=== PATIENT | male | born 1940 | race Caucasian/White ===

== ENCOUNTER → 2018-02-27 07:59 | Outpatient (CLI) | payer MEDICARE, SELFPAY ==
[2018-02-27 08:50] LABS: Add Manual Diff / Slide Review NO; Basophils Percent Auto 0.8 % (0-2); Eosinophils Percent Auto 3.5 % (2-4); Hematocrit 46.4 % (41-53); Hemoglobin 15.8 g/dL (13.5-17.5); Lymphocytes Percent Auto 21.8 % (25-40); Mean Corpuscular Hemoglobin 30.1 PG (26-34); Mean Corpuscular Volume 88.6 fL (80-100); Monocytes Percent Auto 8.7 % (3-14); Neutrophils Absolute Auto 4700 /uL (3000-5900); Neutrophils Percent Auto 65.2 % (50-75); Platelet Count 177 X10^3/uL (150-400); Red Blood Cell Count 5.24 X10^6/uL (4.5-5.9); Red Cell Distribution Width 13.4 % (11.6-14.8); White Blood Cell Count 7.2 X10^3/uL (4.5-11.0)
[2018-02-27 09:58] LABS: Alanine Aminotransferase 28 IU/L (21-72); Albumin 4.1 g/dL (3.5-5.0); Albumin Globulin Ratio 1.5 (1.0-2.8); Alkaline Phosphatase 72 U/L (38-126); Aspartate Aminotransferase 24 IU/L (17-59); Bilirubin Total 0.4 mg/dL (0.2-1.3); Blood Urea Nitrogen 24 mg/dL (9-20); Calcium 9.1 mg/dL (8.4-10.2); Carbon Dioxide 33 mmol/L (22-32); Chloride 103 mmol/L (98-107); Cholesterol 192 mg/dL (140-199); Estimated Glomerular Filt Rate 58.4 mL/min (>60); Globulin 2.7 g/dL (1.7-4.1); Glucose 102 mg/dL (80-110); HDL Cholesterol 35 mg/dL (40-60); HEMOLYSIS < 15 (0-50); LDL Cholesterol Calculated 126 mg/dL (<100); Potassium 3.7 mmol/L (3.4-5.1); Sodium 146 mmol/L (137-145); Total Protein 6.8 g/dL (6.3-8.2); Triglycerides 154 mg/dL (35-150)
== END ==
PROVIDERS: Family Provider Family Medicine; PCP Family Medicine; Visit Provider Family Medicine
DX: E78.5 Hyperlipidemia, unspecified (principal); I10 Essential (primary) hypertension
CPT/HCPCS: 36415; 80053; 80061; 84443; 85025

== ENCOUNTER → 2019-03-10 07:54 | Outpatient (CLI) | payer MEDICARE, SELFPAY ==
[2019-03-10 08:23] LABS: Add Manual Diff / Slide Review NO; Basophils Absolute Auto 100 /uL (0-100); Basophils Percent Auto 0.8 % (0-2); Eosinophils Absolute Auto 400 /uL (0-450); Eosinophils Percent Auto 4.4 % (2-4); Hematocrit 47.9 % (41-53); Hemoglobin 15.9 g/dL (13.5-17.5); Lymphocytes Absolute Auto 1700 /uL (1100-4500); Lymphocytes Percent Auto 20.5 % (25-40); Mean Corpuscular HGB Conc 33.2 % (30-36); Mean Corpuscular Hemoglobin 29.6 PG (26-34); Mean Corpuscular Volume 88.9 fL (80-100); Monocytes Absolute Auto 600 /uL (0-900); Neutrophils Absolute Auto 5300 /uL (1500-7000); Neutrophils Percent Auto 66.3 % (50-75); Platelet Count 177 X10^3/uL (150-400); Red Blood Cell Count 5.38 X10^6/uL (4.5-5.9); Red Cell Distribution Width 13.8 % (11.6-14.8); White Blood Cell Count 8.1 X10^3/uL (4.5-11.0)
[2019-03-10 08:58] LABS: Alanine Aminotransferase 23 IU/L (<50); Albumin 4.1 g/dL (3.5-5.0); Albumin Globulin Ratio 1.8 (1.0-2.8); Alkaline Phosphatase 71 U/L (38-126); Aspartate Aminotransferase 27 IU/L (17-59); BUN Creatinine Ratio 17.7 (6-22); Bilirubin Total 0.6 mg/dL (0.2-1.3); Blood Urea Nitrogen 23 mg/dL (9-20); Calcium 9.4 mg/dL (8.4-10.2); Carbon Dioxide 32 mmol/L (22-32); Chloride 100 mmol/L (98-107); Cholesterol 202 mg/dL (140-199); Estimated Glomerular Filt Rate 53.1 mL/min (>60); Globulin 2.3 g/dL (1.7-4.1); Glucose 109 mg/dL (80-110); HDL Cholesterol 30 mg/dL (40-60); HEMOLYSIS < 15 (0-50); LDL Cholesterol Calculated 126 mg/dL (<100); Potassium 3.7 mmol/L (3.4-5.1); Sodium 140 mmol/L (137-145); Total Protein 6.4 g/dL (6.3-8.2); Triglycerides 231 mg/dL (35-150)
[2019-03-10 09:28] LABS: Thyroid Stimulating Hormone 3.78 uIU/mL (0.47-4.68)
== END ==
PROVIDERS: PCP Family Medicine; Visit Provider Family Medicine
DX: E78.5 Hyperlipidemia, unspecified (principal); I10 Essential (primary) hypertension
CPT/HCPCS: 36415; 80053; 80061; 84443; 85025

== ENCOUNTER → 2020-03-23 09:53 | Outpatient (CLI) | payer MEDICARE, SELFPAY ==
[2020-03-23 10:52] LABS: Add Manual Diff / Slide Review NO; Basophils Absolute Auto 0 /uL (0-100); Basophils Percent Auto 0.4 % (0-2); Eosinophils Absolute Auto 300 /uL (0-450); Hematocrit 48.9 % (41-53); Hemoglobin 16.4 g/dL (13.5-17.5); Lymphocytes Absolute Auto 1300 /uL (1100-4500); Lymphocytes Percent Auto 15.5 % (25-40); Mean Corpuscular HGB Conc 33.5 % (30-36); Mean Corpuscular Hemoglobin 29.6 PG (26-34); Mean Corpuscular Volume 88.3 fL (80-100); Monocytes Absolute Auto 800 /uL (0-900); Monocytes Percent Auto 9.6 % (3-14); Neutrophils Absolute Auto 6100 /uL (1500-7000); Neutrophils Percent Auto 71.5 % (50-75); Platelet Count 193 X10^3/uL (150-400); Red Blood Cell Count 5.54 X10^6/uL (4.5-5.9); Red Cell Distribution Width 14.1 % (11.6-14.8); White Blood Cell Count 8.5 X10^3/uL (4.5-11.0)
[2020-03-23 11:10] LABS: Alanine Aminotransferase 24 IU/L (<50); Albumin 4.2 g/dL (3.5-5.0); Albumin Globulin Ratio 1.4 (1.0-2.8); Alkaline Phosphatase 120 U/L (38-126); Aspartate Aminotransferase 28 IU/L (17-59); BUN Creatinine Ratio 18.2 (6-22); Bilirubin Total 0.6 mg/dL (0.2-1.3); Blood Urea Nitrogen 24 mg/dL (9-20); Calcium 9.4 mg/dL (8.4-10.2); Carbon Dioxide 37 mmol/L (22-32); Chloride 99 mmol/L (98-107); Estimated Glomerular Filt Rate 52.1 mL/min (>60); Glucose 112 mg/dL (80-110); HEMOLYSIS < 15 (0-50); Lipase 54 U/L (23-300); Potassium 3.7 mmol/L (3.4-5.1); Sodium 140 mmol/L (137-145); Total Protein 7.2 g/dL (6.3-8.2)
[2020-03-23 11:59] LABS: TSH w/ Reflex to FT4 3.42 uIU/mL (0.47-4.68)
== END ==
PROVIDERS: PCP Family Medicine; Referring Provider Family Medicine; Visit Provider Family Medicine
DX: I10 Essential (primary) hypertension (principal); E78.5 Hyperlipidemia, unspecified
CPT/HCPCS: 36415; 80053; 83690; 84443; 85025

== ENCOUNTER → 2020-07-13 16:17 | Outpatient (CLI) | payer MEDICARE, SELFPAY ==
[2020-07-13] MEDS: COVID-19 VACC, Ad26(JANSSEN)/PF 0.5 ML IM (16:38)
== END ==
PROVIDERS: PCP Family Medicine; Visit Provider Internal Medicine
DX: Z23 Encounter for immunization (principal)
CPT/HCPCS: 0031A; 91303

== ENCOUNTER → 2021-07-18 09:36 | Outpatient (CLI) | payer MEDICARE, SELFPAY ==
[2021-07-18 10:23] LABS: Add Manual Diff / Slide Review NO; Basophils Absolute Auto 100 /uL (0-100); Eosinophils Absolute Auto 400 /uL (0-450); Eosinophils Percent Auto 4.8 % (2-4); Hematocrit 48.8 % (41-53); Hemoglobin 16.3 g/dL (13.5-17.5); Lymphocytes Absolute Auto 1600 /uL (1100-4500); Lymphocytes Percent Auto 19.5 % (25-40); Mean Corpuscular HGB Conc 33.4 % (30-36); Mean Corpuscular Hemoglobin 29.6 PG (26-34); Mean Corpuscular Volume 88.8 fL (80-100); Monocytes Absolute Auto 600 /uL (0-900); Monocytes Percent Auto 7.3 % (3-14); Neutrophils Absolute Auto 5500 /uL (1500-7000); Neutrophils Percent Auto 67.4 % (50-75); Platelet Count 179 X10^3/uL (150-400); Red Cell Distribution Width 13.7 % (11.6-14.8); White Blood Cell Count 8.1 X10^3/uL (4.5-11.0)
[2021-07-18 11:02] LABS: Alanine Aminotransferase 21 IU/L (<50); Albumin 4.5 g/dL (3.5-5.0); Albumin Globulin Ratio 1.7 (1.0-2.8); Alkaline Phosphatase 73 U/L (38-126); Aspartate Aminotransferase 27 IU/L (17-59); BUN Creatinine Ratio 18.2 (6-22); Bilirubin Total 0.6 mg/dL (0.2-1.3); Blood Urea Nitrogen 25 mg/dL (9-20); Calcium 9.2 mg/dL (8.4-10.2); Carbon Dioxide 32 mmol/L (22-32); Chloride 100 mmol/L (98-107); Cholesterol 224 mg/dL (140-199); Estimated Glomerular Filt Rate 49.6 mL/min (>60); Globulin 2.6 g/dL (1.7-4.1); Glucose 110 mg/dL (80-110); HDL Cholesterol 37 mg/dL (40-60); HEMOLYSIS < 15 (0-50); LDL Cholesterol Calculated 133 mg/dL (<100); Potassium 3.7 mmol/L (3.4-5.1); Sodium 140 mmol/L (137-145); Total Protein 7.1 g/dL (6.3-8.2); Triglycerides 270 mg/dL (35-150)
== END ==
PROVIDERS: PCP Family Medicine; Referring Provider Physician Assistant; Visit Provider Physician Assistant
DX: E78.2 Mixed hyperlipidemia (principal); I10 Essential (primary) hypertension
CPT/HCPCS: 36415; 80053; 80061; 85025

== ENCOUNTER → 2021-10-24 09:26 | Outpatient (CLI) | payer MEDICARE, SELFPAY ==
[2021-10-24 10:13] LABS: BUN Creatinine Ratio 21.3 (6-22); Blood Urea Nitrogen 27 mg/dL (9-20); Calcium 8.7 mg/dL (8.4-10.2); Carbon Dioxide 34 mmol/L (22-32); Chloride 99 mmol/L (98-107); Estimated Glomerular Filt Rate 56 mL/min (>60); Glucose 117 mg/dL (80-110); HEMOLYSIS < 15 (0-50); Potassium 3.5 mmol/L (3.4-5.1); Sodium 141 mmol/L (137-145)
== END ==
PROVIDERS: PCP Family Medicine; Referring Provider Physician Assistant; Visit Provider Physician Assistant
DX: N18.9 Chronic kidney disease, unspecified (principal); I10 Essential (primary) hypertension
CPT/HCPCS: 36415; 80048

== ENCOUNTER 2021-11-08 11:02 | Emergency (ER) | payer MEDICARE, SELFPAY ==
[2021-11-08 11:17] VITALS: BP 174/81; PULSE 119; RESP 20; TEMP 36.9; O2SAT 95; BMI 32.5
--- NOTE | 2021-11-08 11:24 | DI.RAD.S_ITS ---
PROCEDURE: XR FOREARM RT 2V INDICATIONS: swelling and pain TECHNIQUE: 2 views of the forearm were acquired. COMPARISON: None. FINDINGS: Bones: No fractures or dislocations. No suspicious bony lesions. Soft tissues: No suspicious soft tissue calcifications or masses. IMPRESSION: No acute osseous abnormalities. If clinical symptoms persist or clinical suspicion for pathology is high, a repeat examination in 7-10 days, or advanced imaging such as CT or MRI is suggested for further evaluation. Dictated by: Yaneth Mann M.D. on 11/08/2021 at 12:17 Approved by: Yaneth Mann M.D. on 11/08/2021 at 12:17
--- NOTE | 2021-11-08 11:24 | DI.RAD.S_ITS ---
PROCEDURE: XR WRIST RT MIN 3V INDICATIONS: swelling and pain TECHNIQUE: 4 views of the wrist were acquired. COMPARISON: [facility], CR, XR FOREARM RT 2V, 11/08/2021, 11:12. FINDINGS: Bones: No fractures or dislocations. No suspicious bony lesions. There is degenerative joint disease, severe at the 1st carpometacarpal joint, moderate at the radiocarpal joint, distal radioulnar joint and triscaphe joint. Scaphoid view: Scaphoid appears intact. Soft tissues: No suspicious soft tissue calcifications. IMPRESSION: 1. No acute osseous abnormalities. If clinical symptoms persist or clinical suspicion for pathology is high, a repeat examination in 7-10 days, or advanced imaging such as CT or MRI is suggested for further evaluation. 2. Degenerative joint disease as described. Dictated by: Yaneth Mann M.D. on 11/08/2021 at 12:08 Approved by: Yaneth Mann M.D. on 11/08/2021 at 12:17
--- NOTE | 2021-11-08 12:09 | ED.EXTPRO ---
HPI - Extremity Problem <Des Gutierrez PA-C - Last Filed: 11/08/21 12:41> General Chief complaint: Extremity Problem,Nontraumatic Stated complaint: Weakness in right arm, swollen wrist Time Seen by Provider: 11/08/21 11:56 Mode of arrival: Ambulatory History of Present Illness HPI Narrative: This is a 81-year-old male presents to the emergency department due to right hand decreased range of motion as well as right wrist swelling and pain onset 3 days ago. States that it may be due to his nearly daily use of his riding lawnmower but does not recall any acute injuries. Denies any fevers, sore speech, weakness in the right elbow or right shoulder, nausea, vomiting, or dizzines or any other concerning signs or symptoms. No history of CVA. Related Data Home Medications Medication Instructions Recorded Confirmed ASPIRIN (#ASPIRIN) 81 mg PO Q DAY ##0 01/21/12 07/18/21 Fish Oil (#FISH OIL) 1 iu PO Q DAY ##0 01/21/12 07/18/21 MULTIVITAMIN (One Daily 1 tab PO Q DAY ##0 01/21/12 07/18/21 Multivitamin) niacin 50 mg tablet 50 mg PO DAILY 03/17/19 07/18/21 Previous Rx's Medication Instructions Recorded hydrochlorothiazide 25 mg tablet See Rx Instructions .Route 09/24/21 .COMPLEX #90 tabs losartan 100 mg tablet See Rx Instructions .Route 09/24/21 .COMPLEX #90 tabs Allergies Allergy/AdvReac Type Severity Reaction Status Date / Time JENNIFER Inhibitors AdvReac Mild cough Verified 07/18/21 08:47 [JENNIFER INHIBITORS] Review of Systems <Des Gutierrez PA-C - Last Filed: 11/08/21 12:41> Review of Systems Narrative: GENERAL: Denies chills, fatigue, malaise, fever, sweats. HEENT: Denies sinus pain, ear pain, sore throat, difficulty swallowing, dizziness. RESPIRATORY: Denies dyspnea, cough, wheezing, hemoptysis, sputum. CARDIOVASCULAR: Denies chest pain, palpitations, orthopnea, edema, GASTROINTESTINAL: Denies nausea, vomiting, abdominal pain, diarrhea, constipation, melena. : Denies dysuria, frequency, incontinence, hematuria, urinary retention. MUSCULOSKELETAL: Right wrist swelling as well as mild pain and decreased range of motion in the hand SKIN: Denies rash, skin lesions, or other NEUROLOGIC: Denies weakness, headache, numbness, change in speech, confusion, seizures, incoordination. PSYCHIATRIC: No concerning psychosocial issues. 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 Brother No problems noted. Brother No problems noted. Father MS (multiple sclerosis) Mother Choking Sister Lung cancer Sister Stomach cancer Lung cancer Social History marital status: Smoking Status: Former smoker alcohol intake: current (ON OCCASION) substance use type: does not use Smoking Status: Former smoker Substance Use Type: does not use Exam <Des Gutierrez PA-C - Last Filed: 11/08/21 12:41> Narrative Exam Narrative: GENERAL: Well-developed patient, in mild distress. HEAD: Atraumatic. Normocephalic. EYES: Pupils equal round and reactive. Extraocular motions intact. No scleral icterus. No injection or drainage. ENT: Nose without bleeding, purulent drainage. Throat without erythema, tonsillar hypertrophy or exudate. Airway patent. NECK: Trachea midline. Non tender CARDIOVASCULAR: Regular rate and rhythm without murmurs, gallops, or rubs. RESPIRATORY: Clear to auscultation. Breath sounds equal bilaterally. No wheezes, rales, or rhonchi. GASTROINTESTINAL: Abdomen soft, non-tender, nondistended. EXTREMITIES: Mild edema to the dorsal aspect proximal to the 2nd digit of the right hand. Mild tenderness to palpation to the distal radius and hand. 4/5 makeup editor strength on right. No erythema. BACK: Nontender without deformity or crepitance. No flank tenderness. NEURO: AOx3. Cranial nerves 2-12 intact. No weakness at the right elbow or shoulder joint. SKIN: No rash or erythema of visible areas Initial Vital Signs Initial Vital Signs: Vital Signs Temperature 98.4 F 11/08/21 11:17 Pulse Rate 119 H 11/08/21 11:17 Respiratory Rate 20 11/08/21 11:17 Blood Pressure 174/81 H 11/08/21 11:17 Pulse Oximetry 95 11/08/21 11:17 Oxygen Delivery Method 11/08/21 11:17 <DO Anju Barfield Last Filed: 11/09/21 07:29> Initial Vital Signs Initial Vital Signs: Vital Signs Temperature 98.4 F 11/08/21 11:17 Pulse Rate 119 H 11/08/21 11:17 Respiratory Rate 20 11/08/21 11:17 Blood Pressure 174/81 H 11/08/21 11:17 Pulse Oximetry 95 11/08/21 11:17 Oxygen Delivery Method 11/08/21 11:17 Course <Des Gutierrez PA-C - Last Filed: 11/08/21 12:41> Orders Ordered: ED Orders 11/08/21 11:24 XR forearm RT 2V Stat XR wrist RT min 3V Stat Vital Signs Vital signs: Vital Signs - 8 hr 11/08/21 11:17 Temperature 98.4 F Pulse Rate 119 H Respiratory Rate 20 Blood Pressure 174/81 H Pulse Oximetry 95 Oxygen Delivery Method Room Air <DO Anju Barfield Last Filed: 11/09/21 07:29> Orders Ordered: ED Orders 11/08/21 11:24 XR forearm RT 2V Stat XR wrist RT min 3V Stat Vital Signs Vital signs: Vital Signs - 8 hr 11/08/21 11:17 Temperature 98.4 F Pulse Rate 119 H Respiratory Rate 20 Blood Pressure 174/81 H Pulse Oximetry 95 Oxygen Delivery Method Room Air MDM - Extremity (Nontraumatic) <ANDREE Goldsmith Last Filed: 11/08/21 12:41> Imaging Data Extremity x-ray #1: Radiologist's Impression: [address] [id number] ReportSigned Patient: Josse Hampton PMR#: [id number]: 9Acct:[id number]/Sex: 81 / MDate of Service: 11/08/21Loc: EDAccession Number: [id number] Procedure: XR wrist RT min 3V Ordering Provider: Elsa Velásquez D.O. PROCEDURE: XR WRIST RT MIN 3V INDICATIONS: swelling and pain TECHNIQUE: 4 views of the wrist were acquired. COMPARISON: [facility], , XR FOREARM RT 2V, 11/08/2021, 11:12. FINDINGS: Bones: No fractures or dislocations. No suspicious bony lesions. There is degenerative joint disease, severe at the 1st carpometacarpal joint, moderate at the radiocarpal joint, distal radioulnar joint and triscaphe joint. Scaphoid view: Scaphoid appears intact. Soft tissues: No suspicious soft tissue calcifications. IMPRESSION: 1. No acute osseous abnormalities. If clinical symptoms persist or clinical suspicion for pathology is high, a repeat examination in 7-10 days, or advanced imaging such as CT or MRI is suggested for further evaluation. 2. Degenerative joint disease as described. Dictated by: Yaneth Mann M.D. on 11/08/2021 at 12:08 Approved by: Yaneth Mann M.D. on 11/08/2021 at 12:[address] [id number] ReportSigned Patient: Josse Hampton PMR#: [id number]: 9Acct:[id number]/Sex: 81 / MDate of Service: 11/08/21Loc: EDAccession Number: [id number] Procedure: XR forearm RT 2V Ordering Provider: Elsa Velásqeuz D.O. PROCEDURE: XR FOREARM RT 2V INDICATIONS: swelling and pain TECHNIQUE: 2 views of the forearm were acquired. COMPARISON: None. FINDINGS: Bones: No fractures or dislocations. No suspicious bony lesions. Soft tissues: No suspicious soft tissue calcifications or masses. IMPRESSION: No acute osseous abnormalities. If clinical symptoms persist or clinical suspicion for pathology is high, a repeat examination in 7-10 days, or advanced imaging such as CT or MRI is suggested for further evaluation. Dictated by: Yaneth Mann M.D. on 11/08/2021 at 12:17 Approved by: Yaneth Mann M.D. on 11/08/2021 at 12:17 [facility] Narrative Medical decision making narrative: This is a 81-year-old male presents to the emergency department due to primarily right wrist swelling and pain. Patient did not exhibit any other symptoms concerning for CVA including slurred speech, facial drooping, dizziness or any other focal weakness concerning for CVA. Suspect the weakness he reports in his right hand secondary to pain and swelling. X-rays ordered of the right wrist showed severe degenerative disease worse in the 1st MCP area which patient was also describing the most swelling and tenderness. Suspect the swelling and pain is muscular in nature and recommended conservative treatment including ibuprofen, elevation, ice, a wrist brace and rest. Discharge Plan Departure Patient Disposition: Home Clinical Impression: Degenerative joint disease Instructions: DI for Wrist Sprain, DI for Wrist Pain Activity Restrictions/Additional Instructions: Thank you for coming to the [facility] Emergency Department today. Your x-rays did not show any acute fractures but did show severe degenerative joint disease likely discuss worse in the area that your describe having the pain. I suspect that the pain, swelling, and mild weakness is due to the area becoming inflamed possibly due to the repetitive exercises he has been doing on the riding lawnmower. I recommend ibuprofen as it is an anti-inflammatory, elevating the wrist, ice, and a wrist brace as well as rest until the swelling and pain improves. As we discussed you had a completely normal neuro exam and I have low suspicion for any kind of stroke at this time. I hope you feel better soon. Prescriptions: No Action niacin 50 mg tablet 50 mg PO DAILY ASPIRIN (#ASPIRIN) 81 mg PO Q DAY Qty: 0 Fish Oil (#FISH OIL) 1 iu PO Q DAY Qty: 0 MULTIVITAMIN (One Daily Multivitamin) 1 tab PO Q DAY Qty: 0 losartan 100 mg tablet See Rx Instructions .ROUTE .COMPLEX Qty: 90 1RF Dose Instruction: take 1 tablet by mouth once daily Rx Instructions: take 1 tablet by mouth once daily hydrochlorothiazide 25 mg tablet See Rx Instructions .ROUTE .COMPLEX Qty: 90 1RF Dose Instruction: take 1 tablet by mouth once daily Rx Instructions: take 1 tablet by mouth once daily Referrals: Sohail Esteves MD [Primary Care Provider] - Visit Report Forms: Patient Portal/API <Elsa Velásquez DO - Last Filed: 11/09/21 07:29> Cosign ED Attending Cosnicoleature Attestation: I was immediately available in the department for consultation. Documentation has been reviewed. I agree with assessment and plan.
== END 2021-11-08 12:45 | disposition home or self-care (01) ==
PROVIDERS: Emergency Provider Physician Assistant Medical; PCP Family Medicine
DX: M19.031 Primary osteoarthritis, right wrist (principal)
CPT/HCPCS: 73090; 73110; 99281; 99283

== ENCOUNTER → 2021-12-06 16:00 | Outpatient (CLI) | payer MEDICARE, SELFPAY ==
--- NOTE | 2021-12-06 16:05 | DI.RAD.S_ITS ---
PROCEDURE: XR LUMBAR SPINE 2-3V INDICATIONS: low bck pain TECHNIQUE: 3 views of the lumbar spine were acquired. COMPARISON: None. FINDINGS: Bones: 5 [id number] vertebrae are present. There is loss of normal lumbar lordosis . There is 6 mm of retrolisthesis of L2 on L3. Multilevel disc space narrowing and endplate osteophyte formation, as well as facet hypertrophy throughout the thoracolumbar spine. No vertebral body compression fractures. No suspicious bony lesions. Soft tissues: Overlying bowel gas pattern is normal. No suspicious soft tissue calcifications. IMPRESSION: 1. Multilevel degenerative disc and facet disease. 2. No acute fracture. No osseous lesion. If symptoms and/or clinical suspicion for pathology persist, further assessment with repeat, or advanced imaging (e.g., CT, MRI, or bone scan) may be helpful for further assessment. Dictated by: Keara Blanchard M.D. on 12/07/2021 at 10:07 Approved by: Keara Blanchard M.D. on 12/07/2021 at 10:10
== END ==
PROVIDERS: PCP Family Medicine; Referring Provider Family Medicine; Visit Provider Family Medicine
DX: M51.36 Other intervertebral disc degeneration, lumbar region (principal); M47.815 Spondylosis without myelopathy or radiculopathy, thoracolumbar region; M54.50 Low back pain, unspecified
CPT/HCPCS: 72100

== ENCOUNTER → 2023-04-15 08:51 | Outpatient (CLI) | payer MEDICARE, SELFPAY ==
[2023-04-15 09:46] LABS: Add Manual Diff / Slide Review NO; Basophils Absolute Auto 100 /uL (0-100); Basophils Percent Auto 0.7 % (0-2); Eosinophils Absolute Auto 500 /uL (0-450); Eosinophils Percent Auto 5.8 % (2-4); Hematocrit 46.3 % (41-53); Hemoglobin 15.5 g/dL (13.5-17.5); Lymphocytes Absolute Auto 1500 /uL (1100-4500); Lymphocytes Percent Auto 17.3 % (25-40); Mean Corpuscular HGB Conc 33.5 % (30-36); Mean Corpuscular Volume 89.4 fL (80-100); Monocytes Absolute Auto 700 /uL (0-900); Monocytes Percent Auto 8.2 % (3-14); Neutrophils Absolute Auto 5800 /uL (1500-7000); Platelet Count 189 X10^3/uL (150-400); Red Blood Cell Count 5.17 X10^6/uL (4.5-5.9); Red Cell Distribution Width 13.7 % (11.6-14.8); White Blood Cell Count 8.5 X10^3/uL (4.5-11.0)
[2023-04-15 10:12] LABS: Alanine Aminotransferase 22 IU/L (<50); Albumin 4.1 g/dL (3.5-5.0); Albumin Globulin Ratio 1.4 (1.0-2.8); Alkaline Phosphatase 77 U/L (38-126); Aspartate Aminotransferase 27 IU/L (17-59); Bilirubin Total 0.7 mg/dL (0.2-1.3); Blood Urea Nitrogen 31 mg/dL (9-20); Calcium 9.3 mg/dL (8.4-10.2); Carbon Dioxide 32 mmol/L (22-32); Chloride 102 mmol/L (98-107); Cholesterol 217 mg/dL (140-199); Estimated Glomerular Filt Rate 55 mL/min (>60); Glucose 110 mg/dL (80-110); HDL Cholesterol 33 mg/dL (40-60); HEMOLYSIS < 15 (0-50); LDL Cholesterol Calculated 151 mg/dL (<100); Potassium 3.8 mmol/L (3.4-5.1); Sodium 140 mmol/L (137-145); Total Protein 7.1 g/dL (6.3-8.2); Triglycerides 165 mg/dL (35-150)
[2023-04-15 10:39] LABS: TSH w/ Reflex to FT4 2.96 uIU/mL (0.47-4.68)
== END ==
PROVIDERS: PCP Family Medicine; Referring Provider Family Medicine; Visit Provider Family Medicine
DX: E78.5 Hyperlipidemia, unspecified (principal); I10 Essential (primary) hypertension; N18.9 Chronic kidney disease, unspecified
CPT/HCPCS: 36415; 80053; 80061; 84443; 85025

== ENCOUNTER → 2024-05-06 09:01 | Outpatient (CLI) | payer MEDICARE, SELFPAY ==
[2024-05-06 09:58] LABS: Add Manual Diff / Slide Review NO; Basophils Absolute Auto 100 /uL (0-100); Basophils Percent Auto 0.8 % (0-2); Eosinophils Absolute Auto 300 /uL (0-450); Eosinophils Percent Auto 4.2 % (2-4); Hematocrit 49.6 % (41-53); Hemoglobin 16.6 g/dL (13.5-17.5); Lymphocytes Absolute Auto 1600 /uL (1100-4500); Lymphocytes Percent Auto 20.8 % (25-40); Mean Corpuscular HGB Conc 33.4 % (30-36); Mean Corpuscular Hemoglobin 30.1 PG (26-34); Mean Corpuscular Volume 90.1 fL (80-100); Monocytes Absolute Auto 700 /uL (0-900); Monocytes Percent Auto 9.3 % (3-14); Neutrophils Absolute Auto 4900 /uL (1500-7000); Neutrophils Percent Auto 64.9 % (50-75); Platelet Count 198 X10^3/uL (150-400); Red Blood Cell Count 5.51 X10^6/uL (4.5-5.9); Red Cell Distribution Width 13.6 % (11.6-14.8); White Blood Cell Count 7.5 X10^3/uL (4.5-11.0)
[2024-05-06 10:13] LABS: Alanine Aminotransferase 23 IU/L (<50); Albumin 4.1 g/dL (3.5-5.0); Albumin Globulin Ratio 1.6 (1.0-2.8); Alkaline Phosphatase 86 U/L (38-126); Aspartate Aminotransferase 27 IU/L (17-59); BUN Creatinine Ratio 19.4 (6-22); Bilirubin Total 0.5 mg/dL (0.2-1.3); Blood Urea Nitrogen 28 mg/dL (9-20); Calcium 9.2 mg/dL (8.4-10.2); Carbon Dioxide 34 mmol/L (22-32); Chloride 101 mmol/L (98-107); Estimated Glomerular Filt Rate 48 mL/min (>60); Globulin 2.5 g/dL (1.7-4.1); Glucose 109 mg/dL (80-110); HEMOLYSIS < 15 (0-50); Potassium 4.5 mmol/L (3.4-5.1); Sodium 139 mmol/L (137-145); Total Protein 6.6 g/dL (6.3-8.2)
[2024-05-06 10:44] LABS: TSH w/ Reflex to FT4 3.82 uIU/mL (0.47-4.68)
== END ==
PROVIDERS: PCP Family Medicine; Referring Provider Family Medicine; Visit Provider Family Medicine
DX: I12.9 Hypertensive chronic kidney disease with stage 1 through stage 4 chronic kidney disease, or unspecified chronic kidney disease (principal); Z12.5 Encounter for screening for malignant neoplasm of prostate; N18.9 Chronic kidney disease, unspecified; E78.5 Hyperlipidemia, unspecified
CPT/HCPCS: 36415; 80053; 84443; 85025; G0103

== ENCOUNTER → 2024-12-05 07:13 | Outpatient (CLI) | payer MEDICARE, SELFPAY ==
--- NOTE | 2024-12-05 07:15 | DI.MRI.S_ITS ---
PROCEDURE: MR HEAD/BRAIN WO/W CON INDICATIONS: sudden hearing loss left ear TECHNIQUE: Noncontrast sagittal T1 spin echo, axial T2 fast spin echo, axial FLAIR, axial gradient echo, axial diffusion and ADC through the brain. Axial/sagittal/coronal 3-D CISS, thin-slice axial T1 spin echo with fat saturation through the skull base. After the administration of contrast, axial and coronal thin-slice T1 spin echo with fat saturation through the internal auditory canals, axial and coronal and sagittal T1 spin echo with fat saturation through the brain. COMPARISON: None. FINDINGS: Image quality: Excellent. Internal auditory canals: In this patient with this given history, scrutiny is given to cerebellopontine angle cisterns and to the internal auditory canals. No masses or abnormal enhancement can be seen within these regions. CSF spaces: Ventricles are normal in size and shape. No extra-axial fluid collections. Basal cisterns are patent. Brain: No intracranial bleeds or mass effects. No abnormal intracranial enhancement. Diffusion weighted images show no acute ischemic insults. Chacon-white matter interface is intact. Brainstem is normal. Normal intravascular flow voids are present. Skull and face: Calvarial marrow signal is normal. Orbits appear normal. Sinuses: Moderate left mastoid air cell fluid seen. No significant paranasal sinus disease can be seen. IMPRESSION: There is moderate left mastoid air cell fluid. No masses or abnormal enhancement are seen within the cerebellopontine angle cisterns or within the internal auditory canals. If clinically appropriate, please consider a follow-up temporal bone CT for further evaluation. Dictated by: Mohamud Dhillon M.D. on 12/06/2024 at 15:02 Approved by: Mohamud Dhillon M.D. on 12/06/2024 at 15:04
== END ==
LOC: MRI 07:14
PROVIDERS: PCP Family Medicine; Referring Provider Family Medicine; Visit Provider Family Medicine
DX: H91.92 Unspecified hearing loss, left ear (principal)
CPT/HCPCS: 70553; A9579